=== PATIENT | male | born 1970 | race Caucasian/White ===

== ENCOUNTER 2023-08-18 10:36 | Inpatient (IN) | payer SELFPAY ==
[2023-08-18] VITALS (722 sets, daily range): BP systolic 108–150; BP diastolic 56–85; PULSE 73–135; TEMP 100.2–101.5; O2SAT 84–100
[~2023-08-18] VITALS: Ht 175.3 cm; Wt 288.0 kg
[2023-08-18 10:57] LABS: ARTERIAL BLD GAS O2 SATURATION 97.6 % (92-100); ARTERIAL BLD GAS TCO2 CT 7.3; ARTERIAL BLOOD GAS BASE EXCESS -16.7 (-2-2); ARTERIAL BLOOD GAS HCO3 6.8 meq/L (22-26); ARTERIAL BLOOD GAS PO2 99.3 mmHg (80-100); ARTERIAL BLOOD GAS pH 7.29 (7.35-7.45)
[2023-08-18 10:59] LABS: ARTERIAL BLOOD GAS PCO2 14.4 mmHg (35-45)
[2023-08-18] MEDS ORDERED: NS 1,000 ML IV SCH (11:00)
[2023-08-18] MEDS ORDERED: D5 1/2 NS 1,000 ML IV SCH (11:00)
[2023-08-18] MEDS ORDERED: Insulin Human Regular/NS 100 ML IV SCH (11:00)
[2023-08-18] MEDS ORDERED: Vancomycin 2 GM,Special Dose/Pharmacy Prepared 2 GM in NS 500 ML IV ONE (11:15)
[2023-08-18] MEDS ORDERED: NS 1,000 ML IV ONE (11:30)
[2023-08-18 11:34] LABS: COLLECTION METHOD CLEAN CATCH
[2023-08-18 11:38] LABS: HEMOGLOBIN 14.3 g/dl (13.5-18.0); MEAN CELL VOLUME 90 fl (80.0-100.0); MEAN CORPUSCULAR HEMOGLOBIN 31 pg (27-31); MEAN CORPUSCULAR HGB CONC 34 g/dl (33.0-37.0); MEAN PLATELET VOLUME 10.5 fl (7.4-10.4); PLATELET COUNT 187 K/mm3 (130-400); RED BLOOD COUNT 4.68 M/mm3 (4.20-5.60); REDCELL DISTRIBUTION WIDTH-CV 13.6 % (11.5-14.5)
--- NOTE | 2023-08-18 11:49 | NUR ---
ATTEMPTED TO CALL , MARIBEL, FOR CONSENT FOR PICC LINE PLACEMENT. NUMBER ON FILE FOR IS OUT OF ORDER. PATIENT'S PHONE IS LOCKED AND HE IS NOT COHERENT ENOUGH TO UNLOCK PHONE OR TELL THIS NURSE HIS 'S PHONE NUMBER.
--- NOTE | 2023-08-18 12:02 | NUR ---
ADMISSION ASSESSMENT COMPLETED TO BEST OF ABILITY. PATIENT IS LETHARGIC AND UNABLE TO ANSWER QUESTIONS AT THIS TIME. NUMBER ON FACE SHEET FOR IS DISCONNECTED.
[2023-08-18 12:06] LABS: TRICYCLIC ANTIDEPRESS URINE NEGATIVE (NEGATIVE)
[2023-08-18 12:23] LABS: ALBUMIN 2.2 gm/dL (3.5-5.0); BILIRUBIN,TOTAL 0.5 mg/dL (0.2-1.2); CALCIUM 8.8 mg/dL (8.4-10.2); CREATININE, serum 2.39 mg/dL (0.72-1.25); MAGNESIUM 2.2 mg/dL (1.6-2.6); POTASSIUM 4.4 mmol/L (3.5-4.5); TOTAL PROTEIN 6.3 gm/dL (6.2-8.1)
[2023-08-18 12:24] LABS: BAND 65 % (0-10); LYMPHOCYTE 1 % (20.0-51.0); METAMYELOCYTE 1 % (0-0); NEUTROPHILS 21 % (42.0-75.2); PLATELET ESTIMATE NORMAL (NORMAL)
[2023-08-18 12:31] LABS: URINE APPEARANCE Hazy (CLEAR/HAZY); URINE BLOOD 2+ (NEGATIVE); URINE COLOR Yellow (YELLOW); URINE GLUCOSE 2+ (NEGATIVE); URINE KETONE 2+ (NEGATIVE); URINE NITRATE Negative (NEGATIVE); URINE PROTEIN(semi-quant) 2+ (NEGATIVE)
[2023-08-18 12:32] LABS: AMORPHOUS CRYSTAL Present (NOT PRESENT); MUCOUS Present (NOT PRESENT); SQUAMOUS EPITHELIAL None Seen /hpf (0-10); URINE BACTERIA Moderate /hpf (NONE SEEN); URINE RBC 0-2 /hpf (0-2); URINE WBC 0-2 /hpf (0-2)
[2023-08-18 12:38] LABS: CALCIUM 8.7 mg/dL (8.4-10.2); CREATININE, serum 2.4 mg/dL (0.72-1.25); POTASSIUM 4.2 mmol/L (3.5-4.5)
[2023-08-18 12:53] LABS: INR 1.2 (0.8-3.0); PROTHROMBIN TIME 12.8 SECONDS (9.7-12.8)
[2023-08-18] MEDS ORDERED: Cefepime 1 G in Water For Injection,Sterile 10 ML IV SCH (13:00)
[2023-08-18] MEDS ORDERED: Insulin Regular Human (NovoLIN R/HumuLIN R) IV ONE (13:15)
[2023-08-18] MEDS ORDERED: TYLENOL 8 HR PO (15:31)
[2023-08-18] MEDS ORDERED: VENTOLIN0.09 MG (15:32)
[2023-08-18] MEDS ORDERED: B COMPLEX #11 TA1 PO (15:32)
[2023-08-18] MEDS ORDERED: PEPCID40 MG PO (15:34)
[2023-08-18] MEDS ORDERED: LASIX 40MG TABL40 MG PO (15:34)
[2023-08-18] MEDS ORDERED: CANA300T PO (15:34)
[2023-08-18] MEDS ORDERED: MOBIC 7.5MG7.5 MG PO (15:36)
[2023-08-18] MEDS ORDERED: NOVOLOG 100U100 U/M1 SQ (15:36)
[2023-08-18] MEDS ORDERED: Heparin 5,000 UNITS/ML 1 ML VIAL IV PRN (16:15)
[2023-08-18] MEDS ORDERED: Heparin 5,000 UNITS/ML 1 ML VIAL IV ONE (16:15)
[2023-08-18] MEDS ORDERED: Heparin/D5W 250 ML IV SCH (16:15)
[2023-08-18 16:48] LABS: CREATININE, serum 1.35 mg/dL (0.72-1.25)
[2023-08-18 16:50] LABS: POTASSIUM 2.7 mmol/L (3.5-4.5)
[2023-08-18] MEDS ORDERED: Potassium Chloride 100 ML IV SCH (17:00)
[2023-08-18] MEDS ORDERED: *Potassium Replacement Protocol MC SCH (17:00)
[2023-08-18] MEDS ORDERED: NS & 20 mEq KCl 1,000 ML IV SCH (17:15)
[2023-08-18 17:16] LABS: PARTIAL THROMBOPLASTIN TIME 28.8 SECONDS (26.0-37.0)
[2023-08-18] MEDS ORDERED: Magnesium Sulfate 4% 50 ML IV ONE (18:30)
[2023-08-18 21:31] LABS: CALCIUM 8.5 mg/dL (8.4-10.2); CREATININE, serum 1.42 mg/dL (0.72-1.25); MAGNESIUM 2.4 mg/dL (1.6-2.6); PHOSPHOROUS 1.2 mg/dL (2.3-4.7); POTASSIUM 3.4 mmol/L (3.5-4.5)
[2023-08-18] MEDS ORDERED: D5NS 1,000 ML IV SCH (22:15)
[2023-08-18] MEDS ORDERED: Potassium Chloride 100 ML IV ONE (22:15)
[2023-08-18] MEDS ORDERED: Potassium Phoshate 30 MM in NS 250 ML IV ONE (23:45)
[2023-08-19] VITALS (772 sets, daily range): BP systolic 109–161; BP diastolic 65–96; PULSE 96–137; TEMP 98.2–102; O2SAT 68–100
[2023-08-19 01:23] LABS: CALCIUM 8.2 mg/dL (8.4-10.2); CREATININE, serum 1.1 mg/dL (0.72-1.25); MAGNESIUM 2.2 mg/dL (1.6-2.6); POTASSIUM 3.5 mmol/L (3.5-4.5)
[2023-08-19 05:51] LABS: HEMOGLOBIN 13.1 g/dl (13.5-18.0); MEAN CORPUSCULAR HEMOGLOBIN 31 pg (27-31); MEAN CORPUSCULAR HGB CONC 36 g/dl (33.0-37.0); MEAN PLATELET VOLUME 10.8 fl (7.4-10.4); PLATELET COUNT 143 K/mm3 (130-400); RED BLOOD COUNT 4.26 M/mm3 (4.20-5.60); REDCELL DISTRIBUTION WIDTH-CV 13.4 % (11.5-14.5)
[2023-08-19 06:05] LABS: CALCIUM 8.1 mg/dL (8.4-10.2); CREATININE, serum 0.88 mg/dL (0.72-1.25); MAGNESIUM 2.1 mg/dL (1.6-2.6); PHOSPHOROUS 1.3 mg/dL (2.3-4.7); POTASSIUM 3.5 mmol/L (3.5-4.5)
[2023-08-19 06:14] LABS: HEMATOCRIT 36.2 % (42.0-52.0); MEAN CELL VOLUME 85 fl (80.0-100.0)
[2023-08-19] MEDS ORDERED: *Potassium Replacement Protocol MC SCH (06:30)
[2023-08-19] MEDS ORDERED: Potassium Chloride 100 ML IV SCH ×2 (06:30→09:00)
--- NOTE | 2023-08-19 07:00 | NUR ---
Report received from JAMES Roman. Pt's mentation improved through out shift; still drowsy but able to wake and answer questions. Pt remains on insulin and heparin gtt's. Pt appears to be resting comfortably. No s/s discomfort. Call light in reach and bed alarm on.
[2023-08-19 07:11] LABS: BAND 59 % (0-10); LYMPHOCYTE 4 % (20.0-51.0); NEUTROPHILS 31 % (42.0-75.2)
[2023-08-19 07:12] LABS: PLATELET ESTIMATE NORMAL (NORMAL)
[2023-08-19 07:13] LABS: BURR CELLS 1+
[2023-08-19] MEDS ORDERED: Potassium Phoshate 20 MM in NS 250 ML IV ONE (08:00)
[2023-08-19 08:27] LABS: CREATININE, serum 0.78 mg/dL (0.72-1.25); PHOSPHOROUS 0.9 mg/dL (2.3-4.7); POTASSIUM 3.6 mmol/L (3.5-4.5)
[2023-08-19] MEDS ORDERED: Vancomycin 1.5 GM,Special Dose/Pharmacy Prepared 1.5 GM in NS 250 ML IV SCH (09:00)
[2023-08-19] MEDS ORDERED: Ketorolac 15 MG/ML VIAL IV PRN (09:45)
--- NOTE | 2023-08-19 11:05 | NUR ---
green end worker met with patient to discuss discharge planning. Patient confirmed he lives in [place]. Patient [facility] but later expressed he goes to the [facility] as he is . Pharmacy is [facility]. Patient reports he believes he has insurance but could not remember the name. SW asked about a DPOA-HC patient was uncertain if he had one. Patient stated he did not have DME and was previously independent with ADLS. Patient uses transportation services through the [facility] as well. SW asked about a point of contact for him any family members, significant other, etc. Patient was struggling to remember a person for contact. SW reviewed patient's chart and his , Jessica, is listed as the point of contact, P# [phone]. Patient is concerned about how he is going to be able to get around his house when he gets home. SW expressed PT would be working with him to evaluate if he needs any additional services. SW will follow up.
[2023-08-19] MEDS ORDERED: TYLENOL 8 HR PO (11:13)
[2023-08-19] MEDS ORDERED: PROAIR HFA0.09 MG/AC IH (11:14)
[2023-08-19] MEDS ORDERED: NESINA25 PO (11:17)
[2023-08-19] MEDS ORDERED: LEXAPRO20 MG PO (11:17)
[2023-08-19] MEDS ORDERED: PEPCID 20MG TAB20 MG PO (11:19)
[2023-08-19] MEDS ORDERED: ALL DAY ALLERGY10 M3 PO (11:20)
[2023-08-19] MEDS ORDERED: LASIX 40MG TABL40 MG PO (11:20)
[2023-08-19] MEDS ORDERED: GLUCOPHAGE500 MG/TAB PO (11:21)
[2023-08-19] MEDS ORDERED: TOPROL XL 50MG50 MG PO (11:22)
[2023-08-19] MEDS ORDERED: TOPROL XL100 MG PO (11:22)
[2023-08-19] MEDS ORDERED: XARELTO20 MG PO (11:23)
[2023-08-19] MEDS ORDERED: Cefepime 1 G in Water For Injection,Sterile 10 ML IV SCH (12:00)
[2023-08-19] MEDS ORDERED: Acetaminophen 325 MG TAB PO PRN (12:15)
[2023-08-19] MEDS ORDERED: Albuterol 0.083% Neb Soln 2.5 MG/3 ML UD IH PRN (12:15)
[2023-08-19 16:03] LABS: CALCIUM 7.7 mg/dL (8.4-10.2); CREATININE, serum 0.79 mg/dL (0.72-1.25); MAGNESIUM 1.9 mg/dL (1.6-2.6); POTASSIUM 3.6 mmol/L (3.5-4.5)
[2023-08-19] MEDS ORDERED: Vancomycin 1.25 GM,Special Dose/Pharmacy Prepared 1.25 GM in NS 250 ML IV SCH (18:00)
[2023-08-19] MEDS ORDERED: Potassium Phoshate 40 MM in NS 250 ML IV ONE (18:00)
[2023-08-19] MEDS ORDERED: NS 1,000 ML IV ONE (22:45)
[2023-08-20] VITALS (19 sets, daily range): BP systolic 93–153; BP diastolic 63–97; PULSE 85–129; TEMP 98.6–101.3; O2SAT 96–99
--- NOTE | 2023-08-20 00:27 | NUR ---
PT DROWSY, BUT AWAKENS EASILY. WILL FALL ASLEEP DURING CONVERSATION. PT IS FEBRILE. RESTING QUIETLY. NO SIGN OF DISTRESS AT THIS TIME. HOURLY BLOOD GLUCOSE CHECKS.
--- NOTE | 2023-08-20 01:40 | NUR ---
REMAINS STABLE ON ROUNDS. RESPIRATIONS EVEN AND UNLABORED. PT IS DROWSY, BUT AWAKENS EASILY. PT DID EAT 50% OF HIS SUPPER ABOUT 2200. REFUSES TO LAY ON HIS SIDE. PT IS ABLE TO REPOSITION HIMSELF IN BED. NO SIGN OF DISTRESS AT THIS TIME.
--- NOTE | 2023-08-20 06:11 | NUR ---
REMAINS ON INSULIN DRIP AT 4 UNITS/HOUR. STABLE ON ROUNDS. RESPIRATIONS EVEN AND UNLABORED. TEMP MAX 100.8 CORE. NO SIGN OF DISTRESS AT THIS TIME.
[2023-08-20 06:21] LABS: HEMOGLOBIN 11.6 g/dl (13.5-18.0); MEAN CELL VOLUME 87 fl (80.0-100.0); MEAN CORPUSCULAR HEMOGLOBIN 31 pg (27-31); MEAN CORPUSCULAR HGB CONC 35 g/dl (33.0-37.0); MEAN PLATELET VOLUME 11.2 fl (7.4-10.4); PLATELET COUNT 118 K/mm3 (130-400); RED BLOOD COUNT 3.79 M/mm3 (4.20-5.60)
[2023-08-20 06:29] LABS: HEMATOCRIT 33.1 % (42.0-52.0)
[2023-08-20 06:38] LABS: ALBUMIN 1.6 gm/dL (3.5-5.0); BILIRUBIN,TOTAL 0.6 mg/dL (0.2-1.2); CALCIUM 7.8 mg/dL (8.4-10.2); CREATININE, serum 0.7 mg/dL (0.72-1.25); MAGNESIUM 1.8 mg/dL (1.6-2.6); PHOSPHOROUS 1.8 mg/dL (2.3-4.7); POTASSIUM 3.7 mmol/L (3.5-4.5); TOTAL PROTEIN 5.1 gm/dL (6.2-8.1)
--- NOTE | 2023-08-20 07:00 | NUR ---
Report received from JAMES Zapata. Reviewed overnight events. Reviewed labs and gtts. Pt resting in bed with eyes closed. Call light within reach. Will continue with POC.
[2023-08-20 07:25] LABS: BAND 51 % (0-10); LYMPHOCYTE 9 % (20.0-51.0); NEUTROPHILS 28 % (42.0-75.2)
[2023-08-20 07:26] LABS: BURR CELLS 1+; PLATELET ESTIMATE NORMAL (NORMAL)
[2023-08-20] MEDS ORDERED: POTASSIUM PHOSHATE IV ONE (07:30)
[2023-08-20] MEDS ORDERED: NS IV ONE (07:30)
[2023-08-20] MEDS ORDERED: NS 1,000 ML IV SCH (07:45)
[2023-08-20] MEDS ORDERED: Loratadine 10 MG TAB PO SCH (09:00)
[2023-08-20] MEDS ORDERED: Escitalopram 10 MG TAB PO SCH (09:00)
[2023-08-20] MEDS ORDERED: Famotidine 20 MG TAB PO SCH (09:00)
[2023-08-20] MEDS ORDERED: Esmolol/Na Chlor 0.9% 250 ML IV SCH (10:15)
[2023-08-20] MEDS ORDERED: Ondansetron 4 MG/2 ML VIAL IV PRN (10:30)
[2023-08-20] MEDS ORDERED: Insulin Aspart (NovoLOG) SQ SCH (12:00)
[2023-08-20] MEDS ORDERED: Dextrose 50% Water 25 GM/50 ML SYRINGE IV PRN (13:15)
[2023-08-20] MEDS ORDERED: Glucagon 1 MG VIAL IM PRN (13:15)
[2023-08-20] MEDS ORDERED: Dextrose (Glucose) 15 GM (4 x 3.75 GM) Chewable TABLET PACK PO PRN (13:15)
--- NOTE | 2023-08-20 14:32 | NUR ---
Esmolol discontinued and cardizem started per CASSIE Rachel. Pt uncomfortable in bed having left hip pain. Up to chair with 2 person assist. Chair alarm in place. Call light within reach. Will continue with POC.
--- NOTE | 2023-08-20 15:30 | NUR ---
JAMES Ceballos attempted to call [facility] to schedule MRI. No answer. Updated Dr. Mcwilliams. Dr. Mcwilliams stated she talked to ortho who wouldn't do anything until the MRI was completed.
--- NOTE | 2023-08-20 20:00 | NUR ---
PT RESTING IN CHAIR AND DENIES PAIN. HE REPORTS HE IS ABOUT TO FALL ASLEEP AND REPORTS HE WOULD LIKE TO STAY IN THE [facility]. ASSESSMENTS COMPLETED AND VSS. CHAIR WHEELS ARE LOCKED, CALL LIGHT WITHIN REACH, AND ALL QUESTIONS ANSWERED. CARE PLAN REVIEWED.
[2023-08-21] VITALS: BP 134/88; PULSE 99; TEMP 100
--- NOTE | 2023-08-21 00:23 | NUR ---
AT 2325 PT TEMP VIA CATHETER NOTED TO BE 100.0. TYLENOL ADMINISTERED PER MAR. AT 0000 CHECK TEMP REMAINS 100.0 VIA INDWELLING CATHETER THERMOMETER. ORAL TEMP ASSESSED TO BE 98.6 AT THIS TIME.
[2023-08-21 04:00] VITALS: BP 136/82; PULSE 77; TEMP 97.9
[2023-08-21 04:44] LABS: MEAN CELL VOLUME 89 fl (80.0-100.0); MEAN CORPUSCULAR HEMOGLOBIN 31 pg (27-31); MEAN CORPUSCULAR HGB CONC 36 g/dl (33.0-37.0); MEAN PLATELET VOLUME 11.6 fl (7.4-10.4); PLATELET COUNT 120 K/mm3 (130-400); REDCELL DISTRIBUTION WIDTH-CV 14.6 % (11.5-14.5)
[2023-08-21 05:00] LABS: CALCIUM 7.4 mg/dL (8.4-10.2); CREATININE, serum 0.67 mg/dL (0.72-1.25); MAGNESIUM 1.6 mg/dL (1.6-2.6); PHOSPHOROUS 1.9 mg/dL (2.3-4.7); POTASSIUM 3.7 mmol/L (3.5-4.5)
[2023-08-21] MEDS ORDERED: Potassium Chloride 100 ML IV SCH (05:30)
[2023-08-21 06:39] LABS: BAND 19 % (0-10); LYMPHOCYTE 6 % (20.0-51.0); NEUTROPHILS 62 % (42.0-75.2); PLATELET ESTIMATE NORMAL (NORMAL)
--- NOTE | 2023-08-21 07:00 | NUR ---
Report reveived from JAMES Lu. Pt appears to be sleeping in recliner at this time. No s/s discomfort. No acute events overnight. Call light in reach and chair alarm active.
[2023-08-21 08:00] VITALS: BP 135/72; PULSE 85; TEMP 99.5
[2023-08-21] MEDS ORDERED: dilTIAZem 30 MG TAB PO SCH (09:00)
[2023-08-21 12:00] VITALS: BP 142/78; PULSE 87; TEMP 97.9
[2023-08-21 16:00] VITALS: BP 138/86; PULSE 83; TEMP 97.9
[2023-08-21] MEDS ORDERED: cefTRIAXone 2 G in Water For Injection,Sterile 20 ML IV SCH (18:00)
--- NOTE | 2023-08-21 18:30 | NUR ---
Pt transfered to medical room 356 at this time. Pt alert and oriented at time of transfer; vital signs stable. Pt transfered via wheelchair. Pt is able to transfer with assistance of 2 and walker. Pt has 3 bags of belongings and cellphone in his possession at time of transfer. 3 bags placed in closet, cellphone with patient. Pt met in room by JAMES Cabrera.
[2023-08-21 18:33] VITALS: BP 137/83; PULSE 96; TEMP 97.9
--- NOTE | 2023-08-21 18:47 | NUR ---
JULIO C ARRIVED FROM ICU IN STABLE CONDITION. VSS. FALL PORECAUTION PLACED
--- NOTE | 2023-08-21 19:07 | NUR ---
PER NIGHT SAW SETTER RN TO PLACE TELE ORDERS
[2023-08-22] VITALS (11 sets, daily range): BP systolic 124–167; BP diastolic 51–100; PULSE 77–129; TEMP 97.2–98.5
[2023-08-22] MEDS ORDERED: Metoprolol Tartrate 5 MG/5 ML VIAL IV ONE (00:15)
--- NOTE | 2023-08-22 05:00 | NUR ---
ASSESSMENT COMPLETE FOR MARRIAGE THERAPIST. PT COMPLAINED OF BACK DISCOMFORT. PT GIVEN TORADOL FOR PAIN. PT FELT THE TORADOL WAS EFFECTIVE. PT DENIES CHEST PAIN, SOB, N,V,D OR DIZZINESS. PT HAD SOME ELEVATED B/P'S AND HR. HOSPITALIST CALLED. METOPROLOL ORDERED AND GIVEN. PT'S B/P AND HR DID IMPROVE FOR AWHILE. HOSPITALIST NOTIFIED. WILL CONTINUE TO MONITOR AND PASS ON TO DAYSHIFT RN TO ENSURE CARDIOLOGY IS MADE AWARE DURING ROUNDS THIS MORNING. FALL PRECAUTIONS IN PLACE. BED ALARM ON. CALL LIGHT WITHIN REACH.
[2023-08-22 07:48] LABS: HEMOGLOBIN 11.6 g/dl (13.5-18.0); MEAN CELL VOLUME 85 fl (80.0-100.0); MEAN CORPUSCULAR HEMOGLOBIN 30 pg (27-31); MEAN CORPUSCULAR HGB CONC 36 g/dl (33.0-37.0); MEAN PLATELET VOLUME 10.2 fl (7.4-10.4); PLATELET COUNT 197 K/mm3 (130-400); RED BLOOD COUNT 3.84 M/mm3 (4.20-5.60); REDCELL DISTRIBUTION WIDTH-CV 13.6 % (11.5-14.5)
[2023-08-22 07:52] LABS: HEMATOCRIT 32.7 % (42.0-52.0)
[2023-08-22] MEDS ORDERED: Alteplase 1 MG/ML 2 ML VIAL ICA ONE ×5 (08:00→10:45)
[2023-08-22 08:06] LABS: ALBUMIN 1.5 gm/dL (3.5-5.0); BILIRUBIN,TOTAL 0.7 mg/dL (0.2-1.2); CALCIUM 7.8 mg/dL (8.4-10.2); CREATININE, serum 0.7 mg/dL (0.72-1.25); PHOSPHOROUS 1.7 mg/dL (2.3-4.7); POTASSIUM 3.3 mmol/L (3.5-4.5); TOTAL PROTEIN 5.7 gm/dL (6.2-8.1)
--- NOTE | 2023-08-22 08:12 | NUR ---
SOCIAL MEDIA JOB TITLES INFORMED PATIENTS CURRENT HR 120S AND SUSTAINING. JULIO C HAS MAINTAINED THIS HEART RATE SINCE MIDNIGHT. PO CARDIZEM AND METOPROLOL DUE SOON. PER RN TO ADMINISTERED SCHEDULED MEDICATION AND INFORM CARDIOLOGY IF NO CHANGE IN PATIENT STATUS
[2023-08-22 08:38] LABS: BAND 23 % (0-10); LYMPHOCYTE 7 % (20.0-51.0); NEUTROPHILS 61 % (42.0-75.2); PLATELET ESTIMATE NORMAL (NORMAL)
--- NOTE | 2023-08-22 10:00 | NUR ---
HOSPITALIST INFORMED OF PATIENT SUSTAINED HR IN THE 120S AND CURRENT MEDS. PER MD GIVE EXTRA DOSE OF CARDIZEM, IF NO CHANGE CONTACT CARDIOLOGY (SEE EMAR). MD AWARE OF PATIENT CO2
[2023-08-22] MEDS ORDERED: Magnesium Oxide 400 MG TAB PO SCH (10:06)
[2023-08-22] MEDS ORDERED: Sodium Bicarbonate 650 MG TAB PO SCH (10:09)
[2023-08-22] MEDS ORDERED: Potassium Bicarbonate/Citrate 20 MEQ Effervescent TAB PO SCH (10:15)
[2023-08-22] MEDS ORDERED: Magnesium Sulfate 4% 50 ML IV ONE (10:15)
[2023-08-22] MEDS ORDERED: 1/2 NS & 20 mEq KCl 1,000 ML IV SCH (10:15)
[2023-08-22] MEDS ORDERED: *Potassium Replacement Protocol MC SCH (10:15)
[2023-08-22] MEDS ORDERED: LR 1,000 ML IV SCH (10:30)
[2023-08-22] MEDS ORDERED: dilTIAZem 30 MG TAB PO ONE (10:45)
--- NOTE | 2023-08-22 11:30 | NUR ---
PO CARDIZEM DOSE WAS INCREASED BY HOSPITALIST. PATIENT NOW AFIB RATE CONTROLLED IN THE 90S. SEE EMAR FOR DETAILS
[2023-08-22] MEDS ORDERED: Insulin Aspart (NovoLOG) SQ SCH (12:00)
--- NOTE | 2023-08-22 12:30 | NUR ---
2 DOSES OF CATHFLOW UNSUCCESSFUL. TAB MACHINE OPERATOR AWARE. PER FABRICATING MACHINE OPERATOR USE PATEINTS PERIPHERAL SITE, AIVS TO CHECK PICC LINE TOMMORROW.
[2023-08-22] MEDS ORDERED: dilTIAZem 60 MG TAB PO SCH (13:00)
--- NOTE | 2023-08-22 13:30 | NUR ---
PATIENT PICC LINE DRESSING CHANGED (AFTER UNSUCCESSFUL CATHFLOW ATTEMPTS)
--- NOTE | 2023-08-22 15:10 | NUR ---
OVERLAY WAFFLE MATTRESS APPLIED.
[2023-08-22] MEDS ORDERED: Enoxaparin 120 MG/0.8 ML SYRINGE SQ SCH (21:00)
[2023-08-22 23:29] LABS: MAGNESIUM 1.9 mg/dL (1.6-2.6); POTASSIUM 3.6 mmol/L (3.5-4.5)
[2023-08-23] MEDS ORDERED: Potassium Bicarbonate/Citrate 20 MEQ Effervescent TAB PO SCH (00:30)
--- NOTE | 2023-08-23 01:50 | NUR ---
NOTE: pt HAD ORAL POTASSIUM (REPLACEMENT) AT 0130HRS. pt NPO OF 0135HRS.
[2023-08-23 03:51] VITALS: BP 150/72; PULSE 87; TEMP 99
[2023-08-23 06:49] LABS: HEMOGLOBIN 11.1 g/dl (13.5-18.0); MEAN CELL VOLUME 87 fl (80.0-100.0); MEAN CORPUSCULAR HEMOGLOBIN 30 pg (27-31); MEAN CORPUSCULAR HGB CONC 35 g/dl (33.0-37.0); MEAN PLATELET VOLUME 9.8 fl (7.4-10.4); PLATELET COUNT 293 K/mm3 (130-400); RED BLOOD COUNT 3.66 M/mm3 (4.20-5.60); REDCELL DISTRIBUTION WIDTH-CV 13.6 % (11.5-14.5)
[2023-08-23 06:59] LABS: HEMATOCRIT 31.8 % (42.0-52.0)
[2023-08-23 07:26] VITALS: BP 149/79; PULSE 89; TEMP 98.4
[2023-08-23 07:40] LABS: CREATININE, serum 0.64 mg/dL (0.72-1.25); MAGNESIUM 1.8 mg/dL (1.6-2.6); PHOSPHOROUS 1.5 mg/dL (2.3-4.7); POTASSIUM 3.6 mmol/L (3.5-4.5)
[2023-08-23 07:52] LABS: BAND 34 % (0-10); LYMPHOCYTE 7 % (20.0-51.0); NEUTROPHILS 50 % (42.0-75.2); PLATELET ESTIMATE NORMAL (NORMAL)
--- NOTE | 2023-08-23 09:58 | NUR ---
PATIENT SITTING UP IN RECLINER UPON ENTERING ROOM. SHIFT ASSESSMENT COMPLETED. PO MEDICATIONS HELD THIS MORNING DUE TO NPO STATUS. PATIENT COMPLAINS OF GENERALIZED PAIN, REQUESTING MEDICATION. RAZO DRAINING WELL. IVF INFUSING. CALL LIGHT WITHIN REACH. UPDATED PATIENT ON POC.
[2023-08-23 10:55] VITALS: BP 144/62; PULSE 87; TEMP 98.2
--- NOTE | 2023-08-23 13:48 | NUR ---
PATIENT WAS TAKEN OFF UNIT FOR MRI AT THIS TIME.
--- NOTE | 2023-08-23 15:33 | NUR ---
crop or grain farmworker met with pt to discuss if he met with financial counselor Hilton regarding self pay. Pt appears drowsy and falls asleep mid-conversation. DOT called Hilton in the morning to visit with pt regarding insurance. Pt reports he gets everything through the [employer]. SW asked if his was Jessica. Pt reports this is his niece and he thinks she is aware of him being here. SW was informed of substance use by Dr. Romano. SW inquired about providing resources. Pt says "I used to." SW asked if patient wanted substance use resources. Pt declined stating, "Not at this time." SW informed him to call if he would like resources. Discharge Plan: tbd
[2023-08-23 16:08] VITALS: BP 113/58; PULSE 85; TEMP 98.1
[2023-08-23 19:26] VITALS: BP 143/77; PULSE 90; TEMP 98.2
--- NOTE | 2023-08-23 20:00 | NUR ---
UPN SHIFT ASSESSMENT, KALEN WAS AWAKE IN BED. RT 3RD FINGER EDEMENOUS WITH PURLUENT DRAINAGE NOTED. PER PA INSTRUCTIONS, THIS NURSE EXPRESSED FROM RT 3RD FINGER APPROXIMATELY 2ML OF MALODOROUS SEROSAGUINEOUS/ PURLUENT DRAINAGE. A PROCDUCTIVE COUGH WAS NOTED WITH BILATERAL UPPER INSP. WHEEZING. VS WNL, TELE IS AFIB. PATIENT IS AFIBRILE TEMP 99.2.
--- NOTE | 2023-08-23 22:57 | NUR ---
CALL PLACED TO HOSPITALIST TO ALERT OF BLOOD TINGED SPUTUM AND ONSET OF INSP. WHEEZING BILATERALLY IN UPPER LOBES. TORB TO HOLD LOVENOX AND CT/PE STUDY GIVEN.
[2023-08-23] MEDS ORDERED: Albuterol/Ipratropium 3 MG-0.5 MG/3 ML Neb Soln IH PRN (23:00)
--- NOTE | 2023-08-23 23:45 | NUR ---
POSIBLE DTI NOTED ON SACRUM. MEPIPLEX PLACED
[2023-08-24] VITALS (8 sets, daily range): BP systolic 140–178; BP diastolic 70–88; PULSE 63–87; TEMP 98.2–98.9
[2023-08-24] MEDS ORDERED: Iohexol 300 - 100 ML VIAL IV ONE (00:21)
[2023-08-24] MEDS ORDERED: Cefepime 1 G in Water For Injection,Sterile 10 ML IV SCH (02:00)
--- NOTE | 2023-08-24 04:51 | NUR ---
ASSESSING PATIENT'S PICC LINE AND FLUSHED EACH PORT WITH 2O ML WITH GOOD BLOOD RETURN. CONSULTED CHARGE NURSE, HERMILO. SWITCHED LR FROM RT AC OVER TO PURPLE PORT OF LT UPPER ARM PICC IT IS PATENT.
[2023-08-24 07:26] LABS: MEAN CELL VOLUME 90 fl (80.0-100.0); MEAN CORPUSCULAR HGB CONC 35 g/dl (33.0-37.0); MEAN PLATELET VOLUME 10.5 fl (7.4-10.4); PLATELET COUNT 378 K/mm3 (130-400); RED BLOOD COUNT 2.39 M/mm3 (4.20-5.60); REDCELL DISTRIBUTION WIDTH-CV 13.8 % (11.5-14.5)
[2023-08-24 07:30] LABS: HEMATOCRIT 21.5 % (42.0-52.0); MEAN CORPUSCULAR HEMOGLOBIN 31 pg (27-31)
[2023-08-24 07:31] LABS: HEMOGLOBIN 7.5 g/dl (13.5-18.0)
[2023-08-24 08:19] LABS: BAND 21 % (0-10); EOSINOPHIL 2 % (0-4); LYMPHOCYTE 10 % (20.0-51.0); NEUTROPHILS 53 % (42.0-75.2); PLATELET ESTIMATE NORMAL (NORMAL)
[2023-08-24 08:23] LABS: CREATININE, serum 0.61 mg/dL (0.72-1.25); POTASSIUM 4.2 mmol/L (3.5-4.5)
[2023-08-24] MEDS ORDERED: NS 1,000 ML IV SCH (10:00)
--- NOTE | 2023-08-24 11:31 | NUR ---
Assessment completed. Pt a/o x4. Clinical Research Director called at approximately 0935 to report patient in vtach. Upon entering room, patient was lying on his left side having abdominal ultrasound completed. Vtach immediately resolved when patient repositioned to back. See flowsheet for VS. Pt remains NPO for GIFTY but takes am medications with a sip of water. Middle finger to right hand manually expressed with purulent drainage noted. PICC line to RAIN with blood return to both lumens. LR d/c'd per MD order. Waffle mattress overlay to bed. Pt reports that it is helpful with comfort but still reports back and hip pain 7/10 on pain scale. Specialty Mattress overlay requested from [employer]. y
--- NOTE | 2023-08-24 12:19 | NUR ---
Parish Newman APRN notified of patient's run of vtach this morning- no new orders rec'd.
--- NOTE | 2023-08-24 12:22 | NUR ---
Order obtained from Dr. Romano to hold [facility] 5u Novolog for BS 124. Pt remains NPO for GIFTY. Expected to go for procedure at 1300.
--- NOTE | 2023-08-24 13:30 | NUR ---
Pt to canvas shop laborer via bed.
--- NOTE | 2023-08-24 19:25 | NUR ---
Percocet adminsitered for c/o pain- rating /10. Reports pain now /10. Pt sat up in chair for approximately 2 1/2 hours and tolerated well. Middle right finger still draining- manually expressed three times today.
--- NOTE | 2023-08-24 20:00 | NUR ---
PATIENT WAS UP IN BEDSIDE RECLINER EATING DINNER. HE PLEASANT AND AXO 4. VS WNL AND TELE REMAINS RATE CONTROLLED A FIB. HE DENIES CHEST PAIN BUT CONTINUES TO HAVE SOA WITH EXERTION. BG WAS 259 AND ALL PRESCRIBED INSULINS ADMINISTERED LUNG SOUNDS UPPER LOBES EXHIBIT INSP WHEEZING. RT MIDDLE FINGER PROFOUNDLY SWOLLEN WITH VISIBLE PUS BENEATH SKIN. WILL ATTEMPT TO EXPRESS PER PA'S ORDER. CALL LIGHT WITHIN REACH
--- NOTE | 2023-08-24 22:15 | NUR ---
Expressed wound on third finger of right hand. Approximately 1ml of purlent pus removed. Patient tolerated this with mild discomfort. Skin integrity is fragile and wet.
--- NOTE | 2023-08-24 22:15 | NUR ---
Alerted by Juan in tele patient had 5 run of vtach. Entered patient's room and he was laying on left side. Notes reveal that placement of PICC location may cause run of vtach. VS wnl and patient was axo x4.
[2023-08-25] VITALS (10 sets, daily range): BP systolic 111–147; BP diastolic 52–75; PULSE 58–85; TEMP 97.7–98.6
[2023-08-25 07:16] LABS: BASO % 0.3 % (0.0-2.0); EOS # 0.1 K/mm3 (0.0-0.7); EOS % 1.1 % (0.0-4.0); GRAN # 8.7 K/mm3 (1.4-6.5); GRAN % 81.3 % (42.2-75.2); LYMPH # 0.8 K/mm3 (1.2-3.4); LYMPH % 7.7 % (20.0-51.0); MEAN CELL VOLUME 90 fl (80.0-100.0); MEAN CORPUSCULAR HGB CONC 33 g/dl (33.0-37.0); MEAN PLATELET VOLUME 9.3 fl (7.4-10.4); MONO # 0.9 K/mm3 (0.1-0.6); MONO % 8.8 % (1.7-9.3); PLATELET COUNT 333 K/mm3 (130-400); REDCELL DISTRIBUTION WIDTH-CV 13.4 % (11.5-14.5)
[2023-08-25 07:19] LABS: HEMATOCRIT 21.7 % (42.0-52.0); HEMOGLOBIN 7.2 g/dl (13.5-18.0); MEAN CORPUSCULAR HEMOGLOBIN 30 pg (27-31)
[2023-08-25 07:46] LABS: CALCIUM 6.7 mg/dL (8.4-10.2); CREATININE, serum 0.52 mg/dL (0.72-1.25); POTASSIUM 3.3 mmol/L (3.5-4.5)
[2023-08-25] MEDS ORDERED: Potassium Chloride 100 ML IV SCH (08:00)
[2023-08-25] MEDS ORDERED: Iohexol 300 - 100 ML VIAL IV ONE (15:39)
[2023-08-25] MEDS ORDERED: NS 100 ML IV SCH (15:53)
[2023-08-25] MEDS ORDERED: Ferrous Sulfate 325 MG TAB PO SCH (17:00)
--- NOTE | 2023-08-25 21:00 | NUR ---
Initial shift assessment done- pleasant, alert/oriented-- VSS, Dressing replaced to middle right finger- tip of finger/nail falling off,, to have the amputation on Wednesday of top of right middle finger, mepilex to sacrum,, slightly red lower extremities, yougn with clear yellow urine, Tele on- afib/63/min. PICC to left upperarm.
--- NOTE | 2023-08-25 23:30 | NUR ---
States having back pain 02/08, nausea at this time-- will give Zofran and [place] as ordered.
[2023-08-26] VITALS (13 sets, daily range): BP systolic 79–161; BP diastolic 57–77; PULSE 57–88; TEMP 98.1–99.7
--- NOTE | 2023-08-26 06:33 | NUR ---
This nurse took over patient care at approximately 0330. Denies having pain and discomfort. Remains in contact/airborn isoloation for MRSA and rule out TB. Received IV ABX. Labs obtained from PICC. Voiced no questions, needs, or concerns at that time. In bed with call light within reach.
[2023-08-26 07:46] LABS: CALCIUM 7.9 mg/dL (8.4-10.2); CREATININE, serum 0.61 mg/dL (0.72-1.25); POTASSIUM 4.3 mmol/L (3.5-4.5)
--- NOTE | 2023-08-26 08:00 | NUR ---
PT SITTING IN CHAIR UPON ENTERING. PT REPORTS RIGHT HIP PAIN AND GIVEN PRN NORCO PER ORDER. RAZO DRAINING CLEAR YELLOW URINE WITHOUT COMPLICATIONS. PT DENIES BEING SHORT OF BREATH AT THIS TIME. ALL LUNG SOLORIO DIMINISHED DURING ASSESSMENT. RIGHT FOREARM INT FLUSHES WITHOUT COMPLICATIONS. LEFT UPPER ARM PICC DRESSING CLEAN DRY AND INTACT, WRAPPED WITH COBAND. RED AND PURPLE CLAMPED PORTS FLUSH WELL WITH BLOOD RETURN. PT HAS A WOUND TO LEFT 3RD FINGER THAT IS COVERED WITH GAUZE AND TAPE AT THIS TIME. PT DENIES NEEDS AT THIS TIME. CHAIR ALARM ON AND CALL LIGHT IN REACH
[2023-08-26 08:02] LABS: BASO # 0.1 K/mm3 (0.0-0.2); BASO % 0.5 % (0.0-2.0); EOS # 0.1 K/mm3 (0.0-0.7); EOS % 0.8 % (0.0-4.0); GRAN # 9.4 K/mm3 (1.4-6.5); GRAN % 84.2 % (42.2-75.2); LYMPH # 0.7 K/mm3 (1.2-3.4); MEAN CELL VOLUME 90 fl (80.0-100.0); MEAN CORPUSCULAR HGB CONC 34 g/dl (33.0-37.0); MONO # 0.8 K/mm3 (0.1-0.6); MONO % 7.6 % (1.7-9.3); PLATELET COUNT 392 K/mm3 (130-400); RED BLOOD COUNT 2.84 M/mm3 (4.20-5.60); REDCELL DISTRIBUTION WIDTH-CV 13.7 % (11.5-14.5)
[2023-08-26 08:04] LABS: HEMATOCRIT 25.5 % (42.0-52.0); HEMOGLOBIN 8.7 g/dl (13.5-18.0); MEAN CORPUSCULAR HEMOGLOBIN 31 pg (27-31)
--- NOTE | 2023-08-26 08:10 | NUR ---
THIS NURSE CALLED [facility] IN LAB AND NOTIFIED THEM OF CRITICAL VANCOMYCIN TROUGH. THIS NURSE TOLD TO "HOLD NEXT DOSE". THIS NURSE VERBALIZED UNDERSTANDING.
--- NOTE | 2023-08-26 08:15 | NUR ---
ALVAREZ, PHARMACY ON THE FLOOR TO LET THIS NURSE KNOW THAT VANCOMYCIN TROUGH WAS RUN EARLY AND WILL BE REDRAWN APPROX 0930 DUE TO MEDS BEING DUE AT 1000. THIS NURSE VERBALIZED UNDERSTANDING.
--- NOTE | 2023-08-26 12:07 | NUR ---
MIGUEL, ICU, CALLED THIS NURSE TO NOTIFY THAT THERE ARE NO TELEMETRY ORDERS BUT PT DOES HAVE TELE ON AT THIS TIME. DR DOS SANTOS CALLED AND THIS NURSE ASKED IF SHE WOULD LIKE AN ORDER TO BE PLACED TO KEEP TELE ON. HOSPITALIST TOLD THIS NURSE THAT PT DOES NOT NEED TELEMETRY AT THIS TIME AND ITS OKAY TO TAKE IT OFF. THIS NURSE REPEATED THAT IT WAS OKAY TO REMOVED TELE AND HOSPITALIST AGREED.
--- NOTE | 2023-08-26 12:38 | NUR ---
TELE REMOVED FROM PT
--- NOTE | 2023-08-26 13:11 | NUR ---
I called [facility] at [phone] concerning coverage for this admit and spoke with Criselda. Pt is only able to get Elders Assistance from them as a last resort payment. Forms given to Debra for FC to assist pt. Further questions need to be directed to Renea at [phone].
--- NOTE | 2023-08-26 15:27 | NUR ---
DRESSING TO RIGHT 3RD FINGER REMOVED. DISTAL PORTION OF FINGERTIP NOT ATTACHED. PURULENT DRAINAGE NOTED TO TIP OF FINGER, SMALL PINK PORTION TO TOP OF FINGER. PT DENIES PAIN TO FINGER AT THIS TIME.
--- NOTE | 2023-08-26 16:25 | NUR ---
utility worker driver called Angelica Dickey at [phone] to confirm insurance they confirmed pt sees Dr. Schultz. They provided information to call the Health Office at [phone]. They reported that they cannot provide insurance coverage outside of [facility]. They stated pt has to apply for the Elder's Assistance Program. They confirmed pts father is Ismael Montenegro. MEEK Tyler was provided information to fax records request to [facility] as patient transferred from there. Discharge Plan: Home
[2023-08-26] MEDS ORDERED: Sennosides/Docusate 8.6-50 MG TAB PO SCH (21:00)
--- NOTE | 2023-08-26 22:54 | NUR ---
Patient assessed around 2114. Alert and oriented, and able to make needs known. Denies having pain and discomfort. PICC to LUE. Denies having SOB and dyspnea. LS CTA in upper lobes, diminished in lower. HRI. BSAx4. 2+ edema BLE. Mepilex to coccyx CDI. Dressing to right 3rd finger CDI. Aware of plan for amputation tomorrow, and that he is NPO after midnight. Voices no questions, needs, or concerns at this time. In recliner with call light within reach. High fall risk precautions in place.
[2023-08-27] VITALS (18 sets, daily range): BP systolic 109–171; BP diastolic 58–97; PULSE 52–87; TEMP 98–100.3
--- NOTE | 2023-08-27 05:58 | NUR ---
Patient given PRN [place] as requested for pain during the night. Received IV ABX per orders. Dressings to right middle finger came off during the night. Area cleansed, new dressings applied. Has been NPO since midnight for amputation of finger today, except did take medication with sips of water. Voices no questions, needs, or concerns at this time. In bed with call light within reach. High fall risk precautions in place.
[2023-08-27 07:43] LABS: BASO # 0.1 K/mm3 (0.0-0.2); BASO % 0.6 % (0.0-2.0); EOS # 0.1 K/mm3 (0.0-0.7); EOS % 0.9 % (0.0-4.0); GRAN % 82.8 % (42.2-75.2); LYMPH # 0.7 K/mm3 (1.2-3.4); LYMPH % 7.1 % (20.0-51.0); MEAN CELL VOLUME 89 fl (80.0-100.0); MEAN CORPUSCULAR HGB CONC 34 g/dl (33.0-37.0); MEAN PLATELET VOLUME 10.1 fl (7.4-10.4); MONO # 0.8 K/mm3 (0.1-0.6); MONO % 7.8 % (1.7-9.3); PLATELET COUNT 388 K/mm3 (130-400); RED BLOOD COUNT 2.76 M/mm3 (4.20-5.60); REDCELL DISTRIBUTION WIDTH-CV 13.6 % (11.5-14.5)
[2023-08-27 07:44] LABS: HEMOGLOBIN 8.3 g/dl (13.5-18.0); MEAN CORPUSCULAR HEMOGLOBIN 30 pg (27-31)
[2023-08-27 07:45] LABS: HEMATOCRIT 24.6 % (42.0-52.0)
[2023-08-27 07:54] LABS: CALCIUM 7.7 mg/dL (8.4-10.2); CREATININE, serum 0.62 mg/dL (0.72-1.25); POTASSIUM 4.2 mmol/L (3.5-4.5)
[2023-08-27] MEDS ORDERED: LR 1,000 ML IV SCH (08:00)
--- NOTE | 2023-08-27 08:00 | NUR ---
Patient resting in bed, states he is nervous about intervention programmed for today. Alert and oriented x 4, VSS. Clean gown provided, consent signed. Assessment completed, no dressing in right third finger. No further needs at this time. Call light within reach.
[2023-08-27] MEDS ORDERED: Influenza Virus Vaccine, Quad '23-24 (6 MOS+) 0.5 ML SYRINGE IM SCH (09:00)
[2023-08-27] MEDS ORDERED: Polyethylene Glycol 3350 17 GM PDS PO SCH (09:00)
[2023-08-27] MEDS ORDERED: Vancomycin 1.25 GM,Special Dose/Pharmacy Prepared 1.25 GM in NS 250 ML IV SCH (14:00)
[2023-08-28] VITALS (11 sets, daily range): BP systolic 114–152; BP diastolic 60–77; PULSE 49–85; TEMP 98.1–98.8
[2023-08-28 00:53] LABS: C-ANCA 27 U/mL (0-99)
--- NOTE | 2023-08-28 08:40 | NUR ---
PT SITTING IN CHAIR UPON ENTERING. ASSESSMENT DONE, MEDS GIVEN PER ORDER. ANTIBIOTIC COMPLETE. INT TO RIGHT FOREARM FLUSHES WELL, NO COMPLICATIONS NOTED. DUAL PORT LEFT UPPER ARM PICC, DRESSING CLEAN DRY AND INTACT. RED AND PURPLE PORT FLUSH WELL BUT NO BLOOD RETURN. PT DENIES SHORTNESS OF BREATH BUT REPORTS RIGHT HIP PAIN AND GIVEN PRN NORCO. ALL LUNG SOUNDS DIMINISHED. PT REPORTS NO BM SINCE WEDNESDAY, MIRALAX GIVEN WITH SCHEDULED MEDS. RAZO DRAINING WITHOUT COMPLICATIONS. BILATERAL LOWER EXTREMITY +2, PT EDUCATED TO KEEP FEET ELEVATED AND VERBALIZED UNDERSTANDING. PTS FOOD AT BEDSIDE AND PT REFUSES ELEVATING LEGS AT THIS TIME. RIGHT 3RD DIGIT WRAPPED WITH GAUZE. BED LINEN CHANGED BY COLBY BURCH. PT DENIES NEEDS AT THIS TIME, CALL LIGHT IN REACH
--- NOTE | 2023-08-28 09:58 | NUR ---
SW reviewed progress notes and they are reccomending discharge home when cleared. Discharge Plan: Home
[2023-08-28 10:57] LABS: BASO # 0.1 K/mm3 (0.0-0.2); BASO % 0.5 % (0.0-2.0); EOS # 0.1 K/mm3 (0.0-0.7); EOS % 1.2 % (0.0-4.0); GRAN # 8.2 K/mm3 (1.4-6.5); GRAN % 84.1 % (42.2-75.2); LYMPH # 0.7 K/mm3 (1.2-3.4); LYMPH % 7.3 % (20.0-51.0); MEAN CELL VOLUME 89 fl (80.0-100.0); MEAN CORPUSCULAR HGB CONC 34 g/dl (33.0-37.0); MEAN PLATELET VOLUME 8.9 fl (7.4-10.4); MONO # 0.6 K/mm3 (0.1-0.6); MONO % 5.9 % (1.7-9.3); PLATELET COUNT 433 K/mm3 (130-400); RED BLOOD COUNT 2.75 M/mm3 (4.20-5.60); REDCELL DISTRIBUTION WIDTH-CV 13.5 % (11.5-14.5)
[2023-08-28 11:00] LABS: HEMATOCRIT 24.5 % (42.0-52.0); HEMOGLOBIN 8.4 g/dl (13.5-18.0); MEAN CORPUSCULAR HEMOGLOBIN 31 pg (27-31)
--- NOTE | 2023-08-28 11:00 | NUR ---
DR DOS SANTOS NOTIFIED THAT PTS DUAL LUMEN PICC FLUSHES WELL BUT NO BLOOD RETURN. NO NEW ORDERS AT THIS TIME
[2023-08-28 11:21] LABS: CALCIUM 7.7 mg/dL (8.4-10.2); CREATININE, serum 0.76 mg/dL (0.72-1.25); POTASSIUM 4.4 mmol/L (3.5-4.5)
--- NOTE | 2023-08-28 13:15 | NUR ---
PT SITTING UP IN BED AND LUNCH SET UP. PT UPDATED ON ORDER TO DISCONTINUE RAZO AND STATES THAT HE WOULD LIKE TO WAIT "LATER AFTER I EAT". VANCOMYCIN RUNNING IN RED PORT PER ORDER. PT DENIES NEEDS. BED IN LOWEST POSITION, CALL LIGHT IN REACH
--- NOTE | 2023-08-28 17:45 | NUR ---
PT LAYING IN BED UPON ENTERING. LINEN CHANGED, PT CLEANED AND NEW MEPILEX APPLIED. RAZO REMOVED: 8 MLS OF WATER REMOVED FROM BALLOON, CATHETER TIP INTACT, PT TOLERATED WELL. PT GIVEN MEDS PER ORDER AND DENIES NEEDS AT THIS TIME. BED IN LOWEST POSITION, CALL LIGHT IN REACH, BED ALARM ON
--- NOTE | 2023-08-28 19:27 | NUR ---
REPORT GIVEN TO JAMES HERNÁNDEZ
[2023-08-29] VITALS (11 sets, daily range): BP systolic 100–148; BP diastolic 60–80; PULSE 49–93; TEMP 98.4–99
[2023-08-29 08:37] LABS: BASO % 0.5 % (0.0-2.0); EOS # 0.1 K/mm3 (0.0-0.7); EOS % 1.2 % (0.0-4.0); GRAN % 81.6 % (42.2-75.2); LYMPH # 0.7 K/mm3 (1.2-3.4); LYMPH % 9.1 % (20.0-51.0); MEAN CELL VOLUME 90 fl (80.0-100.0); MEAN CORPUSCULAR HGB CONC 33 g/dl (33.0-37.0); MEAN PLATELET VOLUME 9.3 fl (7.4-10.4); MONO # 0.5 K/mm3 (0.1-0.6); MONO % 6.9 % (1.7-9.3); PLATELET COUNT 416 K/mm3 (130-400); RED BLOOD COUNT 2.66 M/mm3 (4.20-5.60); REDCELL DISTRIBUTION WIDTH-CV 13.2 % (11.5-14.5)
[2023-08-29 08:39] LABS: HEMOGLOBIN 7.9 g/dl (13.5-18.0); MEAN CORPUSCULAR HEMOGLOBIN 30 pg (27-31)
[2023-08-29 08:56] LABS: CALCIUM 7.7 mg/dL (8.4-10.2); CREATININE, serum 0.67 mg/dL (0.72-1.25); POTASSIUM 4.4 mmol/L (3.5-4.5)
--- NOTE | 2023-08-29 11:11 | NUR ---
Assessment complete. A/O x4. Pt assisted to side of bed and found to be incontinent of a firm golf ball sized bowel movement. Assisted patient to bathroom so he could finish on the toliet but he didn't have any further results. Cares provided. Dressing to right 3rd finger CDI. Pt denies pain to finger. PICC line without blood return and lab had to do a venous draw. Will place cath claudia per protocol. Pt c/o low back hip pain- will medicate with prn pain medication as needed.
[2023-08-29] MEDS ORDERED: Alteplase 1 MG/ML 2 ML VIAL ICA ONE ×3 (11:45)
--- NOTE | 2023-08-29 14:48 | NUR ---
SW met with patient to complete intake. Patient is transfer from [place]. Patient informed SW that he currently lives in [place] with roommates. PCP Dr Ortega with the [facility] and uses clinic pharmacy for prescriptions. NOK is niece (Jessica Montenegro [phone]) Patient shared that he is independent with ADL's and currently uses cane and shower chair for DMEs. SW will notify SW/automation and controls supervisor on patient for financial application. D/C plan: pending further medical recommendations
--- NOTE | 2023-08-29 15:38 | NUR ---
Pt resting in bed without complaints. Cath claudia to red and purple lumen earlier today effective- both lumens now with blood return. Pt reports [employer] effective for back/hip pain. Specialty mattress in place. Waffle placed to chair earlier in the shift. Pt sat up in chair for lunch for approximately an hour. Fall precautions in place. Airborne/contact precautions followed.
[2023-08-30] VITALS (15 sets, daily range): BP systolic 115–177; BP diastolic 46–86; PULSE 52–85; TEMP 98.1–99.3
--- NOTE | 2023-08-30 07:00 | NUR ---
PATIENT AWAKE AND ALERT, RESTING IN BED, NO NEEDS OR COMPLAINTS AT THIS TIME. CALL LIGHT WTHIN REACH, FALL PRECAUTIONS IN PLACE.
[2023-08-30 07:24] LABS: MEAN CELL VOLUME 89 fl (80.0-100.0); MEAN CORPUSCULAR HGB CONC 33 g/dl (33.0-37.0); MEAN PLATELET VOLUME 9.5 fl (7.4-10.4); RED BLOOD COUNT 2.18 M/mm3 (4.20-5.60); REDCELL DISTRIBUTION WIDTH-CV 13.2 % (11.5-14.5)
[2023-08-30 07:36] LABS: HEMATOCRIT 19.5 % (42.0-52.0); HEMOGLOBIN 6.5 g/dl (13.5-18.0); MEAN CORPUSCULAR HEMOGLOBIN 30 pg (27-31); PLATELET COUNT 236 K/mm3 (130-400)
[2023-08-30 07:45] LABS: CREATININE, serum 0.59 mg/dL (0.72-1.25); POTASSIUM 3.6 mmol/L (3.5-4.5)
[2023-08-30 07:49] LABS: CALCIUM 5.7 mg/dL (8.4-10.2)
--- NOTE | 2023-08-30 07:52 | NUR ---
PA INFORMED OF PATIENTS CRITICAL HGB OF 6.5, CALCIUM OF 5.7, AND CURRENT HYPERTENSION.
[2023-08-30 08:01] LABS: BAND 13 % (0-10); BASOPHIL 1 % (0-2); LYMPHOCYTE 9 % (20.0-51.0); NEUTROPHILS 73 % (42.0-75.2); PLATELET ESTIMATE NORMAL (NORMAL)
--- NOTE | 2023-08-30 08:35 | NUR ---
PATIENT CONSENSTED TO BLOOD TRANSFUSION.
[2023-08-30] MEDS ORDERED: Potassium Bicarbonate/Citrate 20 MEQ Effervescent TAB PO SCH (09:30)
--- NOTE | 2023-08-30 09:38 | NUR ---
TELE CALLED CHUTE OPERATOR ABOUT PT ASSIGNED NURSE WAS BUSY. PT IN A-FLUTTER WITH A RATE OF 59. KRISTI WOODRUFF AND SHAYNA WOOTEN NOTIFIED
--- NOTE | 2023-08-30 11:50 | NUR ---
RN INFORMED HOOP MAKER HELPER MACHINE HOSPITALIST WOULD LIKE THE PATIENT TO GET A PROTEIN SUPPLEMENT. HOOP MAKER HELPER MACHINE PLACED ORDER FOR ENSURE BID.
[2023-08-30] MEDS ORDERED: metroNIDAZOLE 250 MG TAB PO SCH (12:15)
--- NOTE | 2023-08-30 13:30 | NUR ---
PATIENT TOLERATED BLOOD TRANSFUSIONS WITHOUT ISSUES. PATIENT AWAKE AND ALERT, SITTING AT THE EDGE OF BED. PATIENT DENIES ANY CURRENT NEEDS OR COMPLAINTS AT THIS TIME. CALL LIGHT WITHIN REACH, FALL PRECAUTIONS IN PLACE.
[2023-08-30 16:40] LABS: TB GOLD INTERPRETATION Indeterminate (Negative)
--- NOTE | 2023-08-30 19:40 | NUR ---
PATIENT RESTING IN BED WITH TV ON WITH NO ACUTE DISTRESS NOTED. PATIENT ON ROOM AIR. DINNER TRAY STILL IN ROOM. PATIENT STATED "THE SPICES JUST DON'T AGREE WITH ME." PATIENT ATE APPROXIMATELY 25 % OF DINNER TRAY. ASSESSMENT AND VITAL SIGNS COMPLETED AT THIS TIME. PATIENT TOLERATED WELL. PATIENT C/O PAIN. PATIENT STATED PAIN LEVEL IS 6 ON SCALE OF 0 TO 10. PATIENT VERBALIZED UNDERSTANDING THAT PAIN MEDICATION WOULD BE GIVEN. PATIENT REQUESTED DIET PEPSI, JELLO, AND PUDDING. PATIENT UNDERSTANDS THAT PRIMARY NURSE WILL BRING BACK WHEN SHE COMES BACK INTO ROOM. PATIENT DENIES ANY OTHER NEEDS. BED IN LOW POSITION WITH WHEELS LOCKED WITH RAILS UP X3 AND CALL LIGHT WITHIN REACH.
[2023-08-30 19:59] LABS: HEMATOCRIT 24.9 % (42.0-52.0); HEMOGLOBIN 8.4 g/dl (13.5-18.0)
--- NOTE | 2023-08-30 21:20 | NUR ---
PATIENT RESTING IN BED WITH TV ON WITH NO ACUTE DISTRESS NOTED. MEDICATION ADMINISTRATION COMPLETED AT THIS TIME. PATIENT TOLERATED WELL. TYLENOL GIVEN FOR HEADACHE AND NORCO GIVEN FOR PAIN. PATIENT GIVEN DIET PEPSI, PUDDING, AND JELLO FOR PRIOR REQUEST. LINEN FIXED. SCD'S REAPPLIED. PATIENT DENIES ANY OTHER NEEDS. BED IN LOW POSITION WITH WHEELS LOCKED WITH RAILS UP X3 AND CALL LIGHT WITHIN REACH.
[2023-08-31] VITALS (11 sets, daily range): BP systolic 116–168; BP diastolic 51–89; PULSE 55–88; TEMP 98.2–98.7
--- NOTE | 2023-08-31 02:40 | NUR ---
PATIENT RESTING IN BED WITH TV ON WITH NO ACUTE DISTRESS NOTED. PATIENT ON ROOM AIR. PICC LINE TO LEFT UPPER ARM INTACT WITH NO COMPLICATIONS NOTED. RAZO CATH INTACT AND DRAINING CLEAR YELLOW URINE. PATIENT CARE ASSUMED FROM [facility] AT THIS TIME. ALL NEEDS MET. BED IN LOW POSITION WITH WHEELS LOCKED WITH RAILS UP X3 AND CALL LIGHT WITHIN REACH.
[2023-08-31 06:34] LABS: BASO # 0.1 K/mm3 (0.0-0.2); BASO % 0.9 % (0.0-2.0); EOS # 0.1 K/mm3 (0.0-0.7); EOS % 1.6 % (0.0-4.0); GRAN # 4.3 K/mm3 (1.4-6.5); GRAN % 75.9 % (42.2-75.2); LYMPH # 0.6 K/mm3 (1.2-3.4); LYMPH % 11.2 % (20.0-51.0); MEAN CELL VOLUME 89 fl (80.0-100.0); MEAN CORPUSCULAR HGB CONC 34 g/dl (33.0-37.0); MEAN PLATELET VOLUME 9.1 fl (7.4-10.4); MONO # 0.6 K/mm3 (0.1-0.6); MONO % 9.7 % (1.7-9.3); PLATELET COUNT 334 K/mm3 (130-400); REDCELL DISTRIBUTION WIDTH-CV 13.1 % (11.5-14.5)
[2023-08-31 06:46] LABS: HEMATOCRIT 23.9 % (42.0-52.0); HEMOGLOBIN 8.1 g/dl (13.5-18.0); MEAN CORPUSCULAR HEMOGLOBIN 30 pg (27-31)
[2023-08-31 06:56] LABS: CALCIUM 8.1 mg/dL (8.4-10.2); CREATININE, serum 0.84 mg/dL (0.72-1.25); POTASSIUM 4.9 mmol/L (3.5-4.5)
[2023-08-31] MEDS ORDERED: Alteplase 1 MG/ML 2 ML VIAL ICA ONE (10:00)
--- NOTE | 2023-08-31 14:29 | NUR ---
Critical vancomycin trough called to Pharmacy.
[2023-08-31] MEDS ORDERED: *Vancomycin Dosing Protocol IV SCH (14:30)
--- NOTE | 2023-08-31 19:45 | NUR ---
Patient sat up in chair for all meals today. Medicated for c/o low back and hip pain with [place]. Patient reported his pain level as low as 4/10 and as high as 9/10. Reports [place] effective for pain. Specialty bed in place. Waffle cushion for chair when up for meals. Worked with therapy today. Trough critically high. Vanco held per pharmacy/pharmacy protocol. Red lumen to PICC line without blood return and difficulty flushing this am. Cath flow administered per protocol- now can successfuly draw blood from lumen. Contact/airborne precautions in place for r/o TB and MRSA in nares and wound. Dressing to wound CDI- dressing not changed per Dr. Martínez note.
--- NOTE | 2023-08-31 19:45 | NUR ---
PATIENT RESTING IN BEDSIDE RECLINER WITH TV ON WITH NO ACUTE DISTRESS NOTED. PATIENT ON ROOM AIR. PICC LINE TO LEFT UPPER ARM INTACT WITH NO COMPLICATIONS NOTED. RAZO CATH INTACT AND DRAINING CLEAR YELLOW URINE. PATIENT CARE ASSUMED FROM LOGAN RAMIREZ AT THIS TIME. PATIENT ASSISTED TO BED WITH WALKER. GAIT STEADY. PATIENT HAD LARGE NATHALIA-SOFT FORMED BOWEL MOVEMENT. STEVAN CARE PROVIDED. PATIENT ASSISTED TO REPOSITION IN BED FOR COMFORT. SOCKS CHANGED. ASSESSMENT AND VITAL SIGNS TAKEN. PATIENT DENIES ANY OTHER NEEDS AT THIS TIME. BED IN LOW POSITION WITH WHEELS LOCKED WITH RAILS UP X3 AND CALL LIGHT WITHIN REACH.
--- NOTE | 2023-08-31 22:30 | NUR ---
PATIENT RESTING IN BED WITH TV ON WITH NO ACUTE DISTRESS NOTED. PATIENT ON ROOM AIR. MEDICATION ADMINISTRATION COMPLETED AT THIS TIME. PATIENT REQUESTED NIGHT TIME SNACK AND DIET PEPSI. BOTH GIVEN. ALL NEEDS MET. BED IN LOW POSITION WITH WHEELS LOCKED WITH RAILS UP X3 AND CALL LIGHT WITHIN REACH.
[2023-09-01] VITALS (8 sets, daily range): BP systolic 145–172; BP diastolic 68–81; PULSE 45–82; TEMP 98.1–98.6
[2023-09-01 06:47] LABS: BASO # 0.1 K/mm3 (0.0-0.2); BASO % 1.1 % (0.0-2.0); EOS # 0.1 K/mm3 (0.0-0.7); GRAN # 3.1 K/mm3 (1.4-6.5); GRAN % 70.3 % (42.2-75.2); LYMPH # 0.6 K/mm3 (1.2-3.4); LYMPH % 14.4 % (20.0-51.0); MEAN CELL VOLUME 90 fl (80.0-100.0); MEAN CORPUSCULAR HGB CONC 32 g/dl (33.0-37.0); MEAN PLATELET VOLUME 9.2 fl (7.4-10.4); MONO # 0.5 K/mm3 (0.1-0.6); MONO % 11.5 % (1.7-9.3); PLATELET COUNT 359 K/mm3 (130-400); RED BLOOD COUNT 2.74 M/mm3 (4.20-5.60); REDCELL DISTRIBUTION WIDTH-CV 13.2 % (11.5-14.5)
[2023-09-01 07:02] LABS: ALBUMIN 1.4 gm/dL (3.5-5.0); BILIRUBIN,TOTAL 0.4 mg/dL (0.2-1.2); CALCIUM 8.2 mg/dL (8.4-10.2); CREATININE, serum 0.83 mg/dL (0.72-1.25); POTASSIUM 4.8 mmol/L (3.5-4.5); TOTAL PROTEIN 6.2 gm/dL (6.2-8.1)
[2023-09-01 07:03] LABS: HEMATOCRIT 24.7 % (42.0-52.0); MEAN CORPUSCULAR HEMOGLOBIN 29 pg (27-31)
[2023-09-01] MEDS ORDERED: FLOMAX 0.40.4 MG/CAP PO (09:27)
[2023-09-01] MEDS ORDERED: FERROUS SU325 MG/TAB PO ×2 (09:27→09:41)
[2023-09-01] MEDS ORDERED: CARDIZEM 60MG T60 MG PO (09:40)
[2023-09-01] MEDS ORDERED: WALKER MC (09:44)
[2023-09-01] MEDS ORDERED: GLUCOSE TEST ST1 DEV MC (09:59)
[2023-09-01] MEDS ORDERED: B-D SAFETY GLID1 DE1 SQ (09:59)
[2023-09-01] MEDS ORDERED: LANCETS MC (09:59)
[2023-09-01] MEDS ORDERED: CONTROL SOLUTI1 EAC1 MC (09:59)
[2023-09-01] MEDS ORDERED: FREESTYLE PREC1 EAC5 MC (09:59)
[2023-09-01] MEDS ORDERED: GLUTOSE 1515 GM PO (10:00)
[2023-09-01] MEDS ORDERED: BD ALCOHOL1 SWA MC (10:00)
[2023-09-01] MEDS ORDERED: NOVLOG SQ (10:00)
[2023-09-01] MEDS ORDERED: INSLANT SQ (10:00)
[2023-09-01] MEDS ORDERED: GLUCAGON EMERGEN1 M1 SQ (10:00)
--- NOTE | 2023-09-01 10:19 | NUR ---
[id number] PATIENT SEEN FOR HIS A1C OF 11.3. PATIENT WAS NOT VERY RECEPTIVE TO DIABETIC EDUCATION. STATES "ANNETTE HAD DIABETES FOR 30 YEARS NOW, I DONT NEED EDUCATED ON IT. I KNOW WHAT TO DO." OFFERED PATIENT TO SEE US OUTPATIENT AFTER DISCHARGE, PATIENT REFUSED. PATIENT STATED THAT HE IS NOT CHECKING HIS BG DUE TO NOT HAVING A MACHINE ANYMORE. GAVE PATIENT A CONTOUR NEXT MACHINE WITH 10 TEST STRIPS TO TAKE HOME AND ENCOURAGED HIM TO START TAKING HIS BG LEVELS. PATIENT JUST SHOOK HIS HEAD YES. PATIENT STATED HE IS NOT CURRENTLY ON INSULIN AND HE TRIES TO EXERCISE BY WALKING AND CLEANING HIS HOUSE EVERY DAY. PATIENT STATED HIS ROOMMATES HELP HIM OUT WHEN THEY CAN. PATIENT STATES HE HAS SOME FINANCIAL TROUBLE SO HE EATS WHENEVER HE CAN AND WHATEVER HE CAN GET. ASSESSED PATIENTS FEET. PATIENT HAS LITTLE FEELING IN HIS LEFT FOOT. STATES THAT HIS FEET ARE NUMB AND DO TINGLE. CONSUELO, MSN, RN
--- NOTE | 2023-09-01 12:50 | NUR ---
Leathersmith attended clinical rounds with the team and patient is ready for discharge. Bridge Teacher contacted patient's primary care office and they will arrange for follow up. DOT was unable to find a front wheeled walker that would accomondate patient's weight. DOT checked at [facility], [place] and [facility]. DOT also checked with [facility] in [place]. It was determined patient would leave with [facility] walk[facility]. DOT contacted patient's sister, Samantha (ph#[phone]) who advised patient has been staying with a friend, Pratima but that it's not a great situation. Samantha advised she is trying to determine if she can come get patient at some point today. With Samantha's permission, DOT shared her number with patient. Discharge Plan: Home
--- NOTE | 2023-09-01 15:41 | NUR ---
precast concrete ironworker was informed pt can discharge today, but needs transportation. DOT spoke with sister, Yanet [phone] to see if she was available to transport pt. Yanet reports she has a class from 3-4:30pm and then had something else around 7pm. She then reports she has a "wobby tire" and is uneasy about getting pt. DOT asked if she was unable or could manage. She could not provide an official decline and waivered. She felt as though she was not aware of his discharge today. DOT provided DOT Garsia called and discussed transportation today earlier this afternoon. Yanet reports there is no one else to call. DOT spoke with Director Jessica who confirmed an Uber ride home using the hospital's baratric walker was the best option. DOT spoke with RN Amelie who was agreeable to this. DOT met with pt who reports his address as: [address] [place] [address]. DOT scheduled an Uber for 4:20pm and notified the RN. Pt reported to RN he needs clean clothes, DOT Student Leda obtained clean clothes for pt. Discharge Plan: Return home with roommate in [place] today
--- NOTE | 2023-09-01 16:20 | NUR ---
Discharge instructions reviewed with patient-verbalizes understanding. PICC removed per protocol with pressure held to site for 5 minutes and dressed with occlusive dressing. Pt remained flat x30 minutes. Pt escorted to Uber via w/c and discharged home.
== END 2023-09-01 16:23 | disposition home or self-care (01) | DRG 853 ==
LOC: MEDICAL 10:36 → ICU 10:36 → MEDICAL 08-21 18:33
PROVIDERS: Internal Medicine; Nurse Practitioner Family; Orthopaedic Surgery; Physician Assistant; ADMIT Internal Medicine
PROC: 02HV33Z Insertion of Infusion Device into Superior Vena Cava, Percutaneous Approach (ICD-10-PCS; 2023-08-19)
PROC: 0X6Q0Z2 Detachment at Right Middle Finger, Mid, Open Approach (ICD-10-PCS; principal; 2023-08-27 10:15)
PROC: 30243N1 Transfusion of Nonautologous Red Blood Cells into Central Vein, Percutaneous Approach (ICD-10-PCS; 2023-08-30)
DX: A41.02 Sepsis due to Methicillin resistant Staphylococcus aureus (principal); E11.10 Type 2 diabetes mellitus with ketoacidosis without coma; G93.41 Metabolic encephalopathy; I21.A1 Myocardial infarction type 2; E87.1 Hypo-osmolality and hyponatremia; I48.92 Unspecified atrial flutter; N17.9 Acute kidney failure, unspecified; M86.141 Other acute osteomyelitis, right hand; I47.20 Ventricular tachycardia, unspecified; R04.2 Hemoptysis; G72.81 Critical illness myopathy; R33.9 Retention of urine, unspecified; I10 Essential (primary) hypertension; E66.01 Morbid (severe) obesity due to excess calories; F17.210 Nicotine dependence, cigarettes, uncomplicated; E83.51 Hypocalcemia; M54.50 Low back pain, unspecified; E87.8 Other disorders of electrolyte and fluid balance, not elsewhere classified; F19.10 Other psychoactive substance abuse, uncomplicated; D64.9 Anemia, unspecified; R91.8 Other nonspecific abnormal finding of lung field; B96.5 Pseudomonas (aeruginosa) (mallei) (pseudomallei) as the cause of diseases classified elsewhere; K80.20 Calculus of gallbladder without cholecystitis without obstruction; R65.20 Severe sepsis without septic shock; B95.1 Streptococcus, group B, as the cause of diseases classified elsewhere; E11.69 Type 2 diabetes mellitus with other specified complication; Z88.1 Allergy status to other antibiotic agents; Z88.8 Allergy status to other drugs, medicaments and biological substances; Z86.711 Personal history of pulmonary embolism; Z91.199 Patient's noncompliance with other medical treatment and regimen due to unspecified reason; Z79.899 Other long term (current) drug therapy; Z79.84 Long term (current) use of oral hypoglycemic drugs; Z68.39 Body mass index [BMI] 39.0-39.9, adult
CPT/HCPCS: C1751; J0665; J0692; J0696; J1644; J1650; J1805; J1815; J1885; J2405; J2704; J2997; J3370; J3475; J3480; J7030; J7040; J7042; J7050; J7120; P9016; Q3014; Q9967